=== PATIENT | male | born 1980 | race Caucasian/White ===

== ENCOUNTER 2019-12-27 15:03 | Emergency (ER) | payer OTHER, BC ==
[~2019-12-27] VITALS: Ht 182.9 cm; Wt 107.6 kg
[2019-12-27] MEDS ORDERED: OMEP-221 (15:10)
[2019-12-27] MEDS ORDERED: ADACEL/BOOSTRIX VACCINE (DIPHTH/PERTUSS/ACELL/TETANUS)0.5ML SYR (90715) IM ONE (16:00)
--- NOTE | 2019-12-27 16:39 | REP ---
Right hand series: Four views. History: Laceration on the dorsum of the hand. Trauma. Findings: Four views of the right hand demonstrate overall normal mineralization. No evidence of fracture or opaque foreign body seen. No soft tissue laceration is visible on the radiographs. Impression: No fracture seen. Electronically Signed by Wilfredo French MD 12/27/2019 04:30 P
[2019-12-27] MEDS ORDERED: LIDOCAINE 1% MDV INJ 50 ML VIAL SC ONE (17:00)
[2019-12-27] MEDS ORDERED: LIDOCAINE 1% MDV 20ML VIAL As Ordered ONE (17:00)
[2019-12-27] MEDS ORDERED: LIDOCAINE 1% MDV 20ML VIAL SC ONE (17:00)
[2019-12-27] MEDS ORDERED: BACT800T5 PO (17:56)
[2019-12-27 18:06] VITALS: BP 147/94
[2019-12-27] MEDS ORDERED: BACTRIM 160MG/800MG DS TAB PO ONE (18:15)
== END 2019-12-27 18:13 | disposition home or self-care (01) ==
LOC: M ED 15:03
DX: S61.411A Laceration without foreign body of right hand, initial encounter (principal); X58.XXXA Exposure to other specified factors, initial encounter; Y92.89 Other specified places as the place of occurrence of the external cause; Y93.9 Activity, unspecified; Y99.0 Civilian activity done for income or pay; Z88.5 Allergy status to narcotic agent

== ENCOUNTER 2023-04-28 08:20 | Day surgery (SDC) | payer BC ==
[~2023-04-28] VITALS: Ht 182.9 cm; Wt 100.9 kg
[~2023-04-28 08:20] MED LIST: BACT800T5 PO; CITA40TA7 PO; NS 1,000 ML IV ONE; OMEP40CA5 PO
[2023-04-28] MEDS ORDERED: propofoL 200 MG/20 ML VIAL As Ordered ONE ×5 (10:02→10:19)
[2023-04-28 10:26] VITALS: TEMP 97.5
[2023-04-28 11:03] VITALS: BP 115/73; O2SAT 97
== END 2023-04-28 11:11 | disposition home or self-care (01) ==
LOC: M OPP 08:20
PROVIDERS: ATTEND Internal Medicine Gastroenterology
DX: K52.89 Other specified noninfective gastroenteritis and colitis (principal); K62.89 Other specified diseases of anus and rectum; K64.8 Other hemorrhoids; Z87.891 Personal history of nicotine dependence; Z79.899 Other long term (current) drug therapy; Z88.5 Allergy status to narcotic agent